=== PATIENT | female | born 1955 | race Caucasian/White ===

== ENCOUNTER 2022-02-28 15:00 | Inpatient (IN) | payer MEDICARE, MEDICAID ==
[~2022-02-28] VITALS: Ht 157.5 cm; Wt 61.2 kg
[2022-02-28] VITALS: BP_SYST 130
[2022-02-28] MEDS ORDERED: NACL 0.9% 1,000 ML IV ONE ×2 (15:15→18:00)
[2022-02-28 15:18] VITALS: BP_SYST 157
[2022-02-28 15:35] LABS: BILIRUBIN,URINE NEGATIVE (NEGATIVE); BLOOD, URINE 1+ (NEGATIVE); CLARITY/URINE CLEAR (CLEAR); COLOR,URINE YELLOW (YELLOW); GLUCOSE,URINE NEGATIVE (NEGATIVE); KETONES,URINE NEGATIVE (NEGATIVE); LEUKOCYTE ESTERASE ,URINE NEGATIVE (NEGATIVE); NITRITE, URINE NEGATIVE (NEGATIVE); PH,URINE 6.5 (5.0-8.0); PROTEIN URINE NEGATIVE (NEGATIVE)
[2022-02-28 15:38] LABS: BASOPHILS % (AUTO) 0.3 % (0.0-2.0); EOSINOPHILS % (AUTO) 0.1 % (0.0-4.0); HEMATOCRIT 43.3 % (36-48); LYMPHOCYTES # (AUTO) 0.3 K/uL (1.0-5.5); LYMPHOCYTES % (AUTO) 6.1 % (20.5-51.5); MEAN CORPUSCULAR HEMOGLOBIN 34 pg (27-31); MEAN CORPUSCULAR HGB CONC 35 % (32-36); MEAN CORPUSCULAR VOLUME 99 fL (79.0-98.0); MONOCYTES # (AUTO) 0.5 K/uL (0.0-1.0); MONOCYTES % (AUTO) 8.6 % (1.7-9.3); NEUTROPHILS # (AUTO) 4.7 K/uL (1.8-7.7); NEUTROPHILS % (AUTO) 84.9 % (40.0-70.0); RED CELL DISTRIBUTION WIDTH 16.6 % (9.0-15.0); WHITE BLOOD COUNT (AUTO) 5.5 K/uL (4.8-10.8)
[2022-02-28 15:49] LABS: BACTERIA,URINE FEW /HPF (None Seen); MUCUS,URINE None Seen /LPF (None Seen); WBC,URINE 0-3 /HPF (0-3)
[2022-02-28 15:53] LABS: PLATELET COUNT (AUTO) 108 K/uL (130-430)
[2022-02-28 16:50] LABS: CALCIUM 9.1 mg/dL (8.4-11.0); CREATININE 1.57 mg/dL (0.55-1.30); POTASSIUM 4.5 mmol/L (3.5-5.1)
[2022-02-28 16:54] LABS: ACETAMINOPHEN < 1 ug/mL (1-30); ALCOHOL, BLOOD < 3 mg/dL (<10)
[2022-02-28 16:55] LABS: ALBUMIN 2.6 g/dL (3.4-4.8); TOTAL BILIRUBIN 1.7 mg/dL (0.0-1.0)
[2022-02-28 17:30] LABS: BARBITURATE, URINE NEGATIVE (NEG <=200); BENZODIAZEPINE, URINE NEGATIVE (NEG <=150); CANNABINOID, URINE NEGATIVE (NEG <=50); COCAINE, URINE NEGATIVE (NEG <=150); METHAMPHETAMINES SCREEN,URINE NEGATIVE (NEG <=500); OPIATE, URINE NEGATIVE (NEG <=100); PHENCYCLIDINE SCREEN,URINE NEGATIVE (NEG <=25); UR TRICYCLIC ANTIDEPRESSANTS NEGATIVE (NEG <=300); URINE AMPHETAMINE NEGATIVE (NEG <=500); URINE METHADONE NEGATIVE (NEG <=200); URINE OXYCODONE SCREEN NEGATIVE (NEG <=100); URINE PROPOXYPHENE SCREEN NEGATIVE (NEG <=300)
[2022-02-28] MEDS ORDERED: cefTRIAXone 1 GM IVPB PREMIX 50 ML IV ONE (17:45)
[2022-02-28] MEDS ORDERED: PIPERACILLIN/TAZOBACTAM 3.375 GM/VIAL (ZOSYN) IV ONE (17:57)
[2022-02-28] MEDS ORDERED: PIPERACILLIN/TAZO 3.375 GM in NS 50 ML IV ONE (18:00)
[2022-02-28] MEDS ORDERED: LACTULOSE 20 GM/30 ML UDC NG ONE (18:15)
[2022-02-28] MEDS ORDERED: PRO40 PO (18:55)
[2022-02-28] MEDS ORDERED: FURO-149 PO (18:55)
[2022-02-28] MEDS ORDERED: SPIR100T PO (18:55)
[2022-02-28] MEDS ORDERED: INSU100I34 SQ ×2 (18:55)
[2022-02-28] MEDS ORDERED: RIFA550T5 PO (18:55)
[2022-02-28] MEDS ORDERED: LACT10SO66 (18:55)
[2022-02-28] MEDS ORDERED: LURA80TA2 PO (18:55)
[2022-02-28] MEDS ORDERED: FOLI-43 PO (18:55)
[2022-02-28] MEDS ORDERED: TRAZ-251 PO (18:55)
[2022-02-28] MEDS: 0.45% NACL 1,000 ML IV SCH (21:45)
[2022-02-28] MEDS: LACTULOSE 20 GM/30 ML UDC PO SCH (22:00)
[2022-02-28 23:54] VITALS: BP_SYST 130
[2022-03-01] MEDS ORDERED: PIPERACILLIN/TAZOBACTAM 3.375 GM/VIAL (ZOSYN) IV ONE (02:58)
[2022-03-01] MEDS: PIPERACILLIN/TAZO 3.375 GM in NS 50 ML IV SCH ×3 (02:59→18:05)
[2022-03-01 06:00] VITALS: BP_SYST 145
[2022-03-01] MEDS: LACTULOSE 20 GM/30 ML UDC PO SCH ×3 (06:02→21:22)
[2022-03-01 08:00] VITALS: BP_SYST 142
[2022-03-01 12:00] VITALS: BP_SYST 138
[2022-03-01 16:00] VITALS: BP_SYST 146
[2022-03-01] MEDS: 0.45% NACL 1,000 ML IV SCH (19:03)
[2022-03-01 20:00] VITALS: BP_SYST 150
[2022-03-02 01:11] VITALS: BP_SYST 147
[2022-03-02] MEDS: PIPERACILLIN/TAZO 3.375 GM in NS 50 ML IV SCH ×3 (02:29→17:31)
[2022-03-02] MEDS: LACTULOSE 20 GM/30 ML UDC PO SCH ×4 (06:18→23:01)
[2022-03-02 07:21] LABS: BASOPHILS % (AUTO) 0.9 % (0.0-2.0); EOSINOPHILS # (AUTO) 0.1 K/uL (0.0-0.4); EOSINOPHILS % (AUTO) 2.2 % (0.0-4.0); HEMATOCRIT 39.3 % (36-48); HEMOGLOBIN 13.5 g/dL (12.0-16.0); LYMPHOCYTES # (AUTO) 0.5 K/uL (1.0-5.5); MEAN CORPUSCULAR HEMOGLOBIN 34 pg (27-31); MEAN CORPUSCULAR HGB CONC 34 % (32-36); MEAN CORPUSCULAR VOLUME 100 fL (79.0-98.0); MONOCYTES # (AUTO) 0.5 K/uL (0.0-1.0); MONOCYTES % (AUTO) 12.8 % (1.7-9.3); NEUTROPHILS # (AUTO) 2.8 K/uL (1.8-7.7); NEUTROPHILS % (AUTO) 71.1 % (40.0-70.0); PLATELET COUNT (AUTO) 58 K/uL (130-430); RED BLOOD CELL COUNT(AUTO) 3.93 MIL/uL (4.2-6.2)
[2022-03-02 07:55] LABS: CALCIUM 9.2 mg/dL (8.4-11.0); CREATININE 1.45 mg/dL (0.55-1.30); POTASSIUM 3.8 mmol/L (3.5-5.1); TOTAL BILIRUBIN 2.1 mg/dL (0.0-1.0)
[2022-03-02 08:00] VITALS: BP_SYST 140
[2022-03-02] MEDS ORDERED: ONDANSETRON HCL 4 MG/2 ML VIAL IVP PRN (11:15)
[2022-03-02] MEDS: D5/0.45 NS 1,000 ML IV SCH (12:17)
[2022-03-02 12:57] VITALS: BP_SYST 142
[2022-03-02 16:14] VITALS: BP_SYST 141
[2022-03-02 20:00] VITALS: BP_SYST 146
[2022-03-03] VITALS: BP_SYST 148
[2022-03-03] MEDS: PIPERACILLIN/TAZO 3.375 GM in NS 50 ML IV SCH ×2 (02:02→10:50)
[2022-03-03 04:36] LABS: BASOPHILS # (AUTO) 0.1 K/uL (0.0-0.2); BASOPHILS % (AUTO) 1.2 % (0.0-2.0); EOSINOPHILS # (AUTO) 0.1 K/uL (0.0-0.4); EOSINOPHILS % (AUTO) 2.4 % (0.0-4.0); HEMATOCRIT 38.8 % (36-48); HEMOGLOBIN 13.3 g/dL (12.0-16.0); LYMPHOCYTES # (AUTO) 0.7 K/uL (1.0-5.5); LYMPHOCYTES % (AUTO) 17.4 % (20.5-51.5); MEAN CORPUSCULAR HEMOGLOBIN 34 pg (27-31); MEAN CORPUSCULAR HGB CONC 34 % (32-36); MEAN CORPUSCULAR VOLUME 100 fL (79.0-98.0); MONOCYTES # (AUTO) 0.4 K/uL (0.0-1.0); MONOCYTES % (AUTO) 10.4 % (1.7-9.3); NEUTROPHILS # (AUTO) 2.8 K/uL (1.8-7.7); NEUTROPHILS % (AUTO) 68.6 % (40.0-70.0); PLATELET COUNT (AUTO) 61 K/uL (130-430); RED BLOOD CELL COUNT(AUTO) 3.87 MIL/uL (4.2-6.2); RED CELL DISTRIBUTION WIDTH 16.4 % (9.0-15.0); WHITE BLOOD COUNT (AUTO) 4.2 K/uL (4.8-10.8)
[2022-03-03 04:51] LABS: ALBUMIN 1.9 g/dL (3.4-4.8); CALCIUM 8.1 mg/dL (8.4-11.0); CREATININE 1.45 mg/dL (0.55-1.30); POTASSIUM 4.2 mmol/L (3.5-5.1); TOTAL BILIRUBIN 2.1 mg/dL (0.0-1.0)
[2022-03-03] MEDS: LACTULOSE 20 GM/30 ML UDC PO SCH ×4 (06:11→23:09)
[2022-03-03 08:00] VITALS: BP_SYST 129
[2022-03-03] MEDS: D5/0.45 NS 1,000 ML IV SCH (08:15)
[2022-03-03 12:40] VITALS: BP_SYST 143
[2022-03-03 16:38] VITALS: BP_SYST 134
[2022-03-03 20:33] VITALS: BP_SYST 131
[2022-03-03] MEDS: levoFLOXacin 500 MG TABLET PO SCH (22:09)
[2022-03-03] MEDS ORDERED: GLUCOSE (DEXTROSE) ORAL GEL -Adults PO PRN (22:45)
[2022-03-03] MEDS ORDERED: DEXTROSE 50% JECT 50 ML DISP.SYRIN IVP PRN (22:45)
[2022-03-03] MEDS ORDERED: D5W 1,000 ML IV PRN (22:45)
[2022-03-04] MEDS: traZODone HCL 50 MG TABLET (DESYREL) PO SCH ×2 (00:40→21:37)
[2022-03-04] MEDS: INSULIN REGULAR, HUMAN 100 UNITS/ML, 10 ML VIAL (humuLIN R) SUBCUT PRN ×3 (00:44→21:45)
[2022-03-04] MEDS: LACTULOSE 20 GM/30 ML UDC PO SCH ×3 (05:30→18:02)
[2022-03-04] MEDS: D5/0.45 NS 1,000 ML IV SCH (05:31)
[2022-03-04 06:25] LABS: BASOPHILS % (AUTO) 0.7 % (0.0-2.0); EOSINOPHILS # (AUTO) 0.1 K/uL (0.0-0.4); EOSINOPHILS % (AUTO) 2.6 % (0.0-4.0); HEMOGLOBIN 13.6 g/dL (12.0-16.0); LYMPHOCYTES # (AUTO) 0.7 K/uL (1.0-5.5); MEAN CORPUSCULAR HEMOGLOBIN 34 pg (27-31); MEAN CORPUSCULAR HGB CONC 34 % (32-36); MEAN CORPUSCULAR VOLUME 101 fL (79.0-98.0); MONOCYTES # (AUTO) 0.7 K/uL (0.0-1.0); MONOCYTES % (AUTO) 15.2 % (1.7-9.3); NEUTROPHILS # (AUTO) 2.8 K/uL (1.8-7.7); NEUTROPHILS % (AUTO) 65.5 % (40.0-70.0); PLATELET COUNT (AUTO) 62 K/uL (130-430); RED BLOOD CELL COUNT(AUTO) 3.97 MIL/uL (4.2-6.2); RED CELL DISTRIBUTION WIDTH 16.7 % (9.0-15.0); WHITE BLOOD COUNT (AUTO) 4.3 K/uL (4.8-10.8)
[2022-03-04 07:13] LABS: CREATININE 1.39 mg/dL (0.55-1.30); PHOSPHORUS 3.7 mg/dL (2.7-4.5)
[2022-03-04 08:28] VITALS: BP_SYST 122
[2022-03-04] MEDS: RIFAXIMIN 550 MG TABLET PO SCH ×2 (09:00→21:37)
[2022-03-04] MEDS ORDERED: LORazepam 2 MG/ML VIAL IVP ONE (10:30)
[2022-03-04 11:36] VITALS: BP_SYST 129
[2022-03-04 16:06] VITALS: BP_SYST 138
[2022-03-04 20:00] VITALS: BP_SYST 132
[2022-03-04] MEDS: INSULIN Lispro 100 UNITS/ML VIAL (humaLOG) SQ SCH (21:00)
[2022-03-04] MEDS ORDERED: traZODone HCL 50 MG TABLET (DESYREL) PO SCH (21:00)
[2022-03-04] MEDS: levoFLOXacin 500 MG TABLET PO SCH (21:37)
[2022-03-05] VITALS: BP_SYST 113
[2022-03-05] MEDS: LACTULOSE 20 GM/30 ML UDC PO SCH ×5 (01:00→23:06)
[2022-03-05] MEDS: D5/0.45 NS 1,000 ML IV SCH (01:01)
[2022-03-05] MEDS: INSULIN REGULAR, HUMAN 100 UNITS/ML, 10 ML VIAL (humuLIN R) SUBCUT PRN (06:15)
[2022-03-05 06:28] LABS: BASOPHILS % (AUTO) 0.9 % (0.0-2.0); EOSINOPHILS # (AUTO) 0.1 K/uL (0.0-0.4); EOSINOPHILS % (AUTO) 2.7 % (0.0-4.0); HEMATOCRIT 36.9 % (36-48); HEMOGLOBIN 12.6 g/dL (12.0-16.0); LYMPHOCYTES # (AUTO) 0.7 K/uL (1.0-5.5); LYMPHOCYTES % (AUTO) 18.5 % (20.5-51.5); MEAN CORPUSCULAR HEMOGLOBIN 35 pg (27-31); MEAN CORPUSCULAR HGB CONC 34 % (32-36); MEAN CORPUSCULAR VOLUME 101 fL (79.0-98.0); MONOCYTES # (AUTO) 0.6 K/uL (0.0-1.0); MONOCYTES % (AUTO) 14.9 % (1.7-9.3); NEUTROPHILS # (AUTO) 2.3 K/uL (1.8-7.7); PLATELET COUNT (AUTO) 55 K/uL (130-430); RED BLOOD CELL COUNT(AUTO) 3.67 MIL/uL (4.2-6.2); RED CELL DISTRIBUTION WIDTH 16.6 % (9.0-15.0); WHITE BLOOD COUNT (AUTO) 3.7 K/uL (4.8-10.8)
[2022-03-05 07:54] LABS: ERYTHROCYTE SEDIMENTATION RATE 7 MM/HR (0-20)
[2022-03-05 08:00] VITALS: BP_SYST 128
[2022-03-05 08:20] LABS: ALBUMIN 1.7 g/dL (3.4-4.8); C-REACTIVE PROTEIN QUANT 0.5 mg/dL (0-0.5); CALCIUM 8.6 mg/dL (8.4-11.0); CREATININE 1.32 mg/dL (0.55-1.30); POTASSIUM 4.2 mmol/L (3.5-5.1); TOTAL BILIRUBIN 1.2 mg/dL (0.0-1.0)
[2022-03-05] MEDS: RIFAXIMIN 550 MG TABLET PO SCH ×2 (08:52→21:43)
[2022-03-05] MEDS: INSULIN Lispro 100 UNITS/ML VIAL (humaLOG) SQ SCH ×2 (08:54→23:07)
[2022-03-05 11:28] VITALS: BP_SYST 123
[2022-03-05 15:39] VITALS: BP_SYST 125
[2022-03-05] MEDS: levoFLOXacin 500 MG TABLET PO SCH (21:43)
[2022-03-05] MEDS: traZODone HCL 50 MG TABLET (DESYREL) PO SCH (21:43)
[2022-03-05 22:23] VITALS: BP_SYST 136
[2022-03-05 22:25] VITALS: BP_SYST 136
[2022-03-06] VITALS: BP_SYST 126
[2022-03-06] MEDS: LACTULOSE 20 GM/30 ML UDC PO SCH ×3 (06:19→17:41)
[2022-03-06 06:32] LABS: BASOPHILS % (AUTO) 0.5 % (0.0-2.0); EOSINOPHILS # (AUTO) 0.1 K/uL (0.0-0.4); EOSINOPHILS % (AUTO) 2.4 % (0.0-4.0); HEMATOCRIT 36.8 % (36-48); HEMOGLOBIN 12.5 g/dL (12.0-16.0); LYMPHOCYTES # (AUTO) 0.5 K/uL (1.0-5.5); LYMPHOCYTES % (AUTO) 11.2 % (20.5-51.5); MEAN CORPUSCULAR HEMOGLOBIN 34 pg (27-31); MEAN CORPUSCULAR HGB CONC 34 % (32-36); MEAN CORPUSCULAR VOLUME 101 fL (79.0-98.0); MONOCYTES # (AUTO) 0.7 K/uL (0.0-1.0); MONOCYTES % (AUTO) 16.8 % (1.7-9.3); NEUTROPHILS % (AUTO) 69.1 % (40.0-70.0); PLATELET COUNT (AUTO) 52 K/uL (130-430); RED BLOOD CELL COUNT(AUTO) 3.65 MIL/uL (4.2-6.2); RED CELL DISTRIBUTION WIDTH 16.5 % (9.0-15.0); WHITE BLOOD COUNT (AUTO) 4.3 K/uL (4.8-10.8)
[2022-03-06 07:04] LABS: ALBUMIN 1.8 g/dL (3.4-4.8); CALCIUM 8.6 mg/dL (8.4-11.0); CREATININE 1.31 mg/dL (0.55-1.30); PHOSPHORUS 4.1 mg/dL (2.7-4.5); POTASSIUM 4.7 mmol/L (3.5-5.1); TOTAL BILIRUBIN 1.2 mg/dL (0.0-1.0)
[2022-03-06 08:00] VITALS: BP_SYST 121
[2022-03-06] MEDS: INSULIN Lispro 100 UNITS/ML VIAL (humaLOG) SQ SCH ×2 (09:00→21:02)
[2022-03-06] MEDS: RIFAXIMIN 550 MG TABLET PO SCH ×2 (09:46→20:31)
[2022-03-06] MEDS: D5/0.45 NS 1,000 ML IV SCH (09:47)
[2022-03-06 11:29] VITALS: BP_SYST 136
[2022-03-06] MEDS: INSULIN REGULAR, HUMAN 100 UNITS/ML, 10 ML VIAL (humuLIN R) SUBCUT PRN (13:04)
[2022-03-06] MEDS ORDERED: Lactulose PO (13:06)
[2022-03-06] MEDS ORDERED: LEVO500T90 PO (13:06)
[2022-03-06] MEDS ORDERED: MAGNESIUM OXIDE 400 MG TABLET PO ONE (15:45)
[2022-03-06 15:53] VITALS: BP_SYST 129
[2022-03-06] MEDS: traZODone HCL 50 MG TABLET (DESYREL) PO SCH (20:31)
[2022-03-06] MEDS: levoFLOXacin 500 MG TABLET PO SCH (20:32)
[2022-03-06 20:47] VITALS: BP_SYST 135
== END 2022-03-06 22:22 | disposition home health service (06) | DRG 441 ==
LOC: SED 15:00 → STU 21:40
PROVIDERS: ADMIT Specialist; ATTEND Preventive Medicine Preventive Medicine/Occupational Environmental Medicine
DX: K72.90 Hepatic failure, unspecified without coma (principal); E43 Unspecified severe protein-calorie malnutrition; J18.9 Pneumonia, unspecified organism; N17.9 Acute kidney failure, unspecified; E87.1 Hypo-osmolality and hyponatremia; K74.60 Unspecified cirrhosis of liver; F20.9 Schizophrenia, unspecified; Z20.822 Contact with and (suspected) exposure to COVID-19; D69.6 Thrombocytopenia, unspecified; E11.22 Type 2 diabetes mellitus with diabetic chronic kidney disease; E11.65 Type 2 diabetes mellitus with hyperglycemia; E83.52 Hypercalcemia; G89.29 Other chronic pain; E88.09 Other disorders of plasma-protein metabolism, not elsewhere classified; N18.9 Chronic kidney disease, unspecified; D72.819 Decreased white blood cell count, unspecified; Z79.899 Other long term (current) drug therapy; Z68.24 Body mass index [BMI] 24.0-24.9, adult; Z78.1 Physical restraint status
CPT/HCPCS: 36415; 70450-TC; 71045; 76376; 76700-TC; 78226; 80048; 80053; 80307; 81000; 82140; 82570; 82962; 83605; 83735; 84100; 84302; 84540; 85025; 85651-TC; 86140; 87040; 87081; 93005; 93306; 96361; 96365; 96375; 97110-GP; 97116-GP; 97530-GP; 99291; A9537; G0378; G0480; G0481; G0482; J0696; J2060; J2405; J2543